=== PATIENT | male | born 1950 | race Caucasian/White ===

== ENCOUNTER 2016-08-21 10:50 | Emergency (ER) | payer MEDICARE ==
[2016-08-21] MEDS ORDERED: Sodium Chloride 0.9% 1,000 ML IV ONE (11:17)
[2016-08-21] MEDS ORDERED: Sodium Chloride 0.9% 1,000 ML ONE (11:35)
[2016-08-21 11:36] LABS: BASO # 0.1 K/uL (0.0-0.2); BASO % 0.6 % (0.0-2.0); EOS # 0.2 K/uL (0.0-0.7); EOS % 1.9 % (0.0-4.0); HEMATOCRIT 45.2 % (35.0-51.0); LYMPH # 2.5 K/uL (1.0-4.3); LYMPH % 27.5 % (20.0-40.0); MEAN CELL VOLUME 90.7 fL (80.0-94.0); MEAN CORPUSCULAR HEMOGLOBIN 29.6 pg (27.0-31.0); MEAN CORPUSCULAR HGB CONC 32.6 g/dL (33.0-37.0); MEAN PLATELET VOLUME 9.3 fL (7.2-11.7); MONO % 11.1 % (0.0-10.0); RED CELL DISTRIBUTION WIDTH 14.3 % (11.5-14.5); WHITE BLOOD COUNT 8.9 K/uL (4.8-10.8)
[2016-08-21 11:51] LABS: CHLORIDE 99 mmol/L (98-107); POTASSIUM 4.2 mmol/L (3.6-5.2); SODIUM 142 mmol/L (132-148)
[2016-08-21 11:53] LABS: ALB/GLOB RATIO 1.2 (1.0-2.1); AST/SGOT 31 U/L (17-59); BILIRUBIN,TOTAL 0.8 mg/dL (0.2-1.3); CARBON DIOXIDE 28 mmol/L (22-30); GFR AFRICAN-AMERICAN > 60; TOTAL PROTEIN 7.4 g/dL (6.3-8.3)
[2016-08-21 11:54] LABS: ALKALINE PHOSPHATASE 68 U/L (38-126); ALT/SGPT 24 U/L (21-72); BLOOD UREA NITROGEN 18 mg/dL (9-20); CALCIUM 8.6 mg/dl (8.6-10.4); GLUCOSE,RANDOM 104 mg/dL (75-110)
--- NOTE | 2016-08-21 12:02 | C.PDOC ---
History Of Present Illness 66 y/o male, presents to the ED for evaluation of epigastric abdominal pain associated with nausea and multiple episodes of vomiting which began yesterday evening. Patient reports that he and his ate from [employer] and his has also been experiencing similar symptoms. Patient denies fever, chills, diarrhea. Time Seen by Provider: 08/21/16 11:14 Chief Complaint (Nursing): Abdominal Pain History Per: Patient History/Exam Limitations: no limitations Onset/Duration Of Symptoms: Hrs Current Symptoms Are (Timing): Still Present Location Of Pain/Discomfort: Epigastric Quality Of Discomfort: "Pain" Associated Symptoms: Nausea, Vomiting. denies: Fever, Chills, Diarrhea Exacerbating Factors: None Alleviating Factors: None Last Bowel Movement: Today Recent travel outside of the [place]: No Additional History Per: Patient Past Medical History Reviewed: Historical Data, Nursing Documentation, Vital Signs Vital Signs: Last Vital Signs Temp 97.9 F 08/21/16 12:36 Pulse 70 08/21/16 12:36 Resp 20 08/21/16 12:36 BP 112/72 08/21/16 12:36 Pulse Ox 96 08/21/16 14:34 - Medical History PMH: No Chronic Diseases Family History: States: Unknown Family Hx - Social History Hx Tobacco Use: Yes Hx Alcohol Use: No Hx Substance Use: No - Immunization History Hx Tetanus Toxoid Vaccination: Yes Hx Influenza Vaccination: No Hx Pneumococcal Vaccination: No Review Of Systems Except As Marked, All Systems Reviewed And Found Negative. Constitutional: Negative for: Fever, Chills Gastrointestinal: Positive for: Nausea, Vomiting, Abdominal Pain (epigastric ). Negative for: Diarrhea Physical Exam - Physical Exam Appears: Non-toxic, No Acute Distress Skin: Normal Color, Warm, Dry Head: Atraumatic, Normacephalic Eye(s): bilateral: Normal Inspection, EOMI Oral Mucosa: Moist Neck: Normal ROM, Supple Chest: Symmetrical, No Deformity, No Tenderness Cardiovascular: Rhythm Regular, No Murmur Respiratory: Normal Breath Sounds, No Rales, No Rhonchi, No Wheezing Gastrointestinal/Abdominal: Soft, No Tenderness, No Guarding, No Rebound Back: Normal Inspection, No Vertebral Tenderness, No Paraspinal Tenderness Extremity: Normal ROM Neurological/Psych: Oriented x3, Normal Speech, Normal Cognition Gait: Steady ED Course And Treatment - Laboratory Results Result Diagrams: 08/21/16 11:33 08/21/16 11:33 Lab Interpretation: No Acute Changes O2 Sat by Pulse Oximetry: 96 (on RA ) Pulse Ox Interpretation: Normal Medical Decision Making Medical Decision Making: Impression: 66 y/o male with epigastric abdominal pain, nausea, and vomiting Plan: * labs * Pepcid IV * Zofran IV * IV fluids * reassess and disposition Progress notes: labs ordered and reviewed. Patient received Pepcid IV, Zofran IV, and IV Fluids. On reassessment, patient is resting comfortably, showing no signs of distress, tolerating PO intake, and reports an improvement in his symptoms. Patient is stable for discharge from the ED and is advised to follow up with his PMD within a timely manner for further evaluation. Disposition Counseled Patient/Family Regarding: Diagnosis, Need For Followup, Rx Given - Disposition Disposition: HOME/ ROUTINE Disposition Time: 12:00 Condition: STABLE Additional Instructions: Administre lquidos para prevenir la deshidratacin. [employer] Zofran segn lo prescrito. Trate de dieta baja en grasa con el aumento de lquidos john la bebida deportiva, gelatina. Trate de sopa, arroz, cordero, galletas, cereales, pl tanos para ayudar con la diarrea. Prescriptions: Ondansetron ODT [Zofran ODT] 1 odt PO BID PRN #6 odt PRN Reason: Nausea/Vomiting Instructions: Acute Nausea and Vomiting (ED) Print Language: PAKISTANI - POA Present On Arrival: None - Clinical Impression Clinical Impression: Vomiting - PA / OTA / Resident Statement MD/DO has reviewed & agrees with the documentation as recorded. - Scribe Statement The provider has reviewed the documentation as recorded by the Scribe (Nancy Salas) All medical record entries made by the Scribe were at my direction and personally dictated by me. I have reviewed the chart and agree that the record accurately reflects my personal performance of the history, physical exam, medical decision making, and the department course for this patient. I have also personally directed, reviewed, and agree with the discharge instructions and disposition.
[2016-08-21 12:38] VITALS: BP 112/72; PULSE 70; RESP 20; TEMP 97.9
[2016-08-21 13:45] VITALS: O2SAT 96
== END 2016-08-21 12:36 | disposition home or self-care (01) ==
LOC: C.ER 10:50
DX: R11.10 Vomiting, unspecified (principal)
CPT/HCPCS: 80053; 83690; 85025; 96361; 96374; 96375; 99284; J2405; J7040

== ENCOUNTER 2018-06-30 09:12 | Emergency (ER) | payer MEDICARE ==
[2018-06-30 09:20] VITALS: BMI 29.5
[2018-06-30 09:35] VITALS: RESP 18
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
[2018-06-30 10:05] LABS: BASO % 0.4 % (0.0-2.0); EOS % 0.1 % (0.0-4.0); LYMPH # 1.6 K/uL (1.0-4.3); LYMPH % 18.9 % (20.0-40.0); MEAN CELL VOLUME 91.8 fL (80.0-94.0); MEAN CORPUSCULAR HEMOGLOBIN 29.7 pg (27.0-31.0); MEAN CORPUSCULAR HGB CONC 32.4 g/dL (33.0-37.0); MEAN PLATELET VOLUME 9.3 fL (7.2-11.7); MONO # 1.3 K/uL (0.0-0.8); MONO % 15.1 % (0.0-10.0); NEUT # 5.5 K/uL (1.8-7.0); NEUT % 65.5 % (50.0-75.0); RBC 5.39 Mil/uL (4.40-5.90); RED CELL DISTRIBUTION WIDTH 14.6 % (11.5-14.5); WHITE BLOOD COUNT 8.4 K/uL (4.8-10.8)
[2018-06-30 10:19] LABS: ALB/GLOB RATIO 1.1 (1.0-2.1); ALBUMIN 4.6 g/dL (3.5-5.0); ALT/SGPT 70 U/L (21-72); AST/SGOT 99 U/L (17-59); BLOOD UREA NITROGEN 18 mg/dL (9-20); CALCIUM 9.8 mg/dl (8.6-10.4); GFR NON-AFRICAN AMERICAN > 60; LIPASE 80 U/L (23-300)
[2018-06-30] MEDS ORDERED: Iodixanol 320 MG/ML 100 ML BOTTLE IV ONE (10:38)
[2018-06-30 10:57] LABS: SQUAMOUS EPITHIAL 1 /hpf (0-5); URINE BILIRUBIN 1+ (NEGATIVE); URINE BLOOD NEGATIVE (NEGATIVE); URINE CLARITY Clear (Clear); URINE COLOR Amber (YELLOW); URINE GLUCOSE (UA) NORMAL (Normal); URINE LEUKOCYTE ESTERASE NEG Leu/uL (Negative); URINE PROTEIN 2+ mg/dL (NEGATIVE)
--- NOTE | 2018-06-30 11:57 | CT ---
Date of service: 06/30/2018 PROCEDURE: CT Abdomen and Pelvis with contrast HISTORY: abd pain COMPARISON: None available. TECHNIQUE: Contrast dose: 100 mL Visipaque 320 IV Radiation dose: Total exam DLP = 678.6 mGy-cm. This CT exam was performed using one or more of the following dose reduction techniques: Automated exposure control, adjustment of the mA and/or kV according to patient size, and/or use of iterative reconstruction technique. FINDINGS: Examination limited by motion. LOWER THORAX: No visible consolidation, pleural effusion, or pneumothorax. Small hiatal hernia/distal esophageal wall thickening. LIVER: Hypoattenuation of the liver compatible with hepatic steatosis. GALLBLADDER AND BILE DUCTS: Unremarkable. PANCREAS: Unremarkable. SPLEEN: Unremarkable. ADRENALS: Unremarkable. KIDNEYS AND URETERS: Malrotated right pelvic kidney. The kidneys enhance symmetrically. No hydronephrosis or obstructing calculus identified. VASCULATURE: Aneurysmal dilatation of the right common iliac artery measuring approximately 2.2 cm in diameter. No aortic aneurysm. Atherosclerotic calcifications of the aorta. BOWEL: Stomach is nondistended. Lack of oral contrast limits evaluation for bowel pathology. Bowel loops appear within normal limits of caliber without evidence of obstruction. Diverticulosis without CT evidence of acute diverticulitis. APPENDIX: The appendix appears within normal limits of caliber. No secondary signs of acute appendicitis. PERITONEUM: No significant free fluid. No definite free air. LYMPH NODES: No bulky adenopathy identified. BLADDER: Thick-walled under distended urinary bladder. Recommend correlation with urinalysis. REPRODUCTIVE: The prostate gland measures approximately 3.5 x 5.0 cm. BONES: Osseous demineralization. Degenerative changes. Scoliosis. Bilateral L5 spondylolysis. OTHER FINDINGS: None. IMPRESSION: Examination limited by motion. Aneurysmal dilatation of the right common iliac artery. Hypoattenuation of the liver compatible with hepatic steatosis. Diverticulosis without CT evidence of acute diverticulitis. Thick-walled under distended urinary bladder. Recommend correlation with urinalysis. Enlarged prostate gland. Recommend correlation with PSA. Additional findings as above.
[2018-06-30 12:43] VITALS: BP 97/62; PULSE 77; TEMP 99.6; O2SAT 98
--- NOTE | 2018-07-02 00:03 | CARD ---
APPROVED REPORT Date of service: 06/30/2018 EKG Measurement Heart [id number] <Conclusion> Sinus rhythm with marked sinus arrhythmia Cannot rule out Inferior infarct, age undetermined Abnormal ECG
== END 2018-06-30 12:44 | disposition home or self-care (01) ==
LOC: C.ER 09:12
DX: R10.9 Unspecified abdominal pain (principal)
CPT/HCPCS: 36415; 74177; 80053; 81001; 83690; 84484; 85025; 93005; 99285; Q9967

== ENCOUNTER 2018-09-13 10:29 | Emergency (ER) | payer MEDICARE, MEDICAID ==
[2018-09-13 10:30] VITALS: BMI 29.5
[2018-09-13 11:46] LABS: BASO % 0.3 % (0.0-2.0); EOS # 0.1 K/uL (0.0-0.7); EOS % 1.5 % (0.0-4.0); HEMOGLOBIN 14.6 g/dL (12.0-18.0); LYMPH # 2.2 K/uL (1.0-4.3); LYMPH % 28.1 % (20.0-40.0); MEAN CELL VOLUME 92.2 fL (80.0-94.0); MEAN CORPUSCULAR HEMOGLOBIN 31.2 pg (27.0-31.0); MEAN CORPUSCULAR HGB CONC 33.9 g/dL (33.0-37.0); MEAN PLATELET VOLUME 8.9 fL (7.2-11.7); MONO # 0.8 K/uL (0.0-0.8); MONO % 10.4 % (0.0-10.0); NEUT # 4.8 K/uL (1.8-7.0); NEUT % 59.7 % (50.0-75.0); RBC 4.69 Mil/uL (4.40-5.90); RED CELL DISTRIBUTION WIDTH 14.3 % (11.5-14.5)
--- NOTE | 2018-09-13 11:50 | C.PDOC ---
History Of Present Illness 68 y/o male presents to ed with several complaints; sts he ate a burger with egg from a food cart yesterday and had vomiting and diarrhea afterwards, none today, but still feels off. no fever. no abdominal pain. pt also reports depression and difficulty sleeping since 's 9 months, no hi. si or ah. Time Seen by Provider: 09/13/18 10:56 Chief Complaint (Nursing): GI Problem History Per: Patient History/Exam Limitations: no limitations Onset/Duration Of Symptoms: Days Past Medical History Reviewed: Historical Data, Nursing Documentation, Vital Signs Vital Signs: Last Vital Signs Temp 98 F 09/13/18 10:39 Pulse 90 09/13/18 10:39 Resp 20 09/13/18 10:39 BP 96/64 L 09/13/18 10:39 Pulse Ox 98 09/13/18 10:39 Primary Care Provider: Non [facility] Provider, - Medical History PMH: No Chronic Diseases Family History: States: Unknown Family Hx - Social History Hx Tobacco Use: Yes Hx Alcohol Use: No (Former) Hx Substance Use: No - Immunization History Hx Tetanus Toxoid Vaccination: Yes Hx Influenza Vaccination: No Hx Pneumococcal Vaccination: No Review Of Systems Constitutional: Negative for: Fever, Chills ENT: Negative for: Throat Pain Cardiovascular: Positive for: Light Headedness. Negative for: Chest Pain, Palpitations Respiratory: Negative for: Cough Gastrointestinal: Positive for: Nausea, Vomiting, Diarrhea. Negative for: Abdominal Pain Genitourinary: Negative for: Dysuria Skin: Negative for: Rash Neurological: Negative for: Weakness, Numbness Physical Exam - Physical Exam Appears: Non-toxic, No Acute Distress Skin: Warm, Dry Head: Atraumatic, Normacephalic Eye(s): bilateral: Normal Inspection Oral Mucosa: Dry Tongue: No Normal Appearing Teeth: Other (poor dentition) Neck: Supple Chest: No Tenderness Cardiovascular: Rhythm Regular, No Murmur Respiratory: No Decreased Breath Sounds, No Accessory Muscle Use Gastrointestinal/Abdominal: Bowel Sounds, Soft, No Tenderness, No Guarding, No Rebound Neurological/Psych: Oriented x3, Normal Speech, Normal Cognition ED Course And Treatment - Laboratory Results Result Diagrams: 09/13/18 11:43 09/13/18 11:43 O2 Sat by Pulse Oximetry: 98 - Other Rad CXR X-Ray: Viewed By Me, Read By Radiologist Interpretation: IMPRESSION: Right hilar prominence. Biapical pleural thickening. Medical Decision Making Medical Decision Making: pt one day s/p n/v/d, feels a bit lightheaded today. bp on low side. abdomen soft, nd, nt. will get labs, ivf, pepcid. zofran and re-eval. pt also endorses feeling depressed; Chaplain Mccann to come see pt. 1407 pt seen by Chaplain Mccann and given info about bereavement group. 1430 pt feeling much better. no longer lightheaded. ambulates around ed in no distress and wants to go home. will d/c with pmd and bereavement group f/u Disposition Counseled Patient/Family Regarding: Studies Performed, Diagnosis, Need For Followup - Disposition Referrals: [facility] [Outside] [facility] [Outside] Disposition: HOME/ ROUTINE Disposition Time: 14:36 Condition: IMPROVED Additional Instructions: Please follow up with your doctor or in Medical clinic in a few days. Improtant that you drink a lot of fluids. Avoid food cart food- eat multiple meals of plain, bland foods and clear fluids; add foods as tolerated. Follow up with Chaplain Mccann's breavement group. Instructions: Viral Gastroenteritis, Adult (DC), Dealing With , Adult Forms: [facility] (Norwegian), General Discharge Instructions - Clinical Impression Clinical Impression: Gastroenteritis, Bereavement counseling
[2018-09-13] MEDS ORDERED: Sodium Chloride 0.9% 1,000 ML IV ONE (12:04)
[2018-09-13 12:07] LABS: ALB/GLOB RATIO 1.1 (1.0-2.1); ALBUMIN 4.2 g/dL (3.5-5.0); ALT/SGPT 20 U/L (21-72); AST/SGOT 30 U/L (17-59); BLOOD UREA NITROGEN 26 mg/dL (9-20); CALCIUM 9.4 mg/dl (8.6-10.4); GFR NON-AFRICAN AMERICAN > 60; LIPASE 41 U/L (23-300)
[2018-09-13] MEDS ORDERED: Sodium Chloride 0.9% 1,000 ML ONE (12:15)
--- NOTE | 2018-09-13 12:34 | RAD ---
HISTORY: wheezing COMPARISON: None available. TECHNIQUE: Chest PA and lateral, 2 views FINDINGS: Examination limited by habitus and patient obliquity. LUNGS: Biapical pleural thickening. Right hilar prominence. No focal consolidation. Please note that chest x-ray has limited sensitivity for the detection of pulmonary masses. PLEURA: No significant pleural effusion identified. No definite pneumothorax . CARDIOVASCULAR: Heart size appears within normal limits. Atherosclerotic calcifications present. OSSEOUS STRUCTURES: Osseous demineralization. Degenerative changes. VISUALIZED UPPER ABDOMEN: Unremarkable. OTHER FINDINGS: None. IMPRESSION: Right hilar prominence. Biapical pleural thickening.
[2018-09-13 15:52] VITALS: BP 109/74; PULSE 75; RESP 16; TEMP 98.2
[2018-09-14 11:10] VITALS: O2SAT 98
== END 2018-09-13 14:45 | disposition home or self-care (01) ==
LOC: C.ER 10:29
DX: K52.9 Noninfective gastroenteritis and colitis, unspecified (principal); Z63.4 Disappearance and death of family member
CPT/HCPCS: 71046; 80053; 83690; 85025; 96361; 96374; 96375; 99285; J2405; J7030